=== PATIENT | female | born 1965 | race Caucasian/White ===

== ENCOUNTER 2018-11-12 01:06 | Emergency (ER) | payer OTHER, MEDICAID, SELFPAY ==
--- NOTE | 2018-11-12 01:07 | DI.RAD.S_ITS ---
PROCEDURE: XR CHEST 1V INDICATIONS: chest pain right side TECHNIQUE: One view of the chest was acquired. COMPARISON: None. FINDINGS: Surgical changes and devices: None. Lungs and pleura: Lungs are clear. No pleural effusions or pneumothorax. Mediastinum: Mediastinal contours appear normal. Heart size is normal. Bones and chest wall: No suspicious bony lesions. Overlying soft tissues appear unremarkable. IMPRESSION: Normal for age, source of current chest symptoms is not seen. Dictated by: Krzysztof Fong M.D. on 11/12/2018 at 8:23 Approved by: Krzysztof Fong M.D. on 11/12/2018 at 8:23
--- NOTE | 2018-11-12 01:07 | DI.US.S_ITS ---
PROCEDURE: US ABDOMEN COMPLETE INDICATIONS: RIGHT UPPER QUADRANT PAIN TECHNIQUE: Real-time scanning was performed of the abdominal and retroperitoneal organs, with image documentation. COMPARISON: None. FINDINGS: Liver: Liver is normal in size and homogeneous in echotexture. Gallbladder: Gallbladder is sonographically normal. No gallstones. No gallbladder wall thickening. No pericholecystic fluid. No sonographic Arreaga sign. Biliary ducts: Intrahepatic bile ducts are non-dilated. Extrahepatic bile duct caliber measures 7.0 mm. Normal is 6-7 mm or less in diameter, or 10 mm or less post-cholecystectomy. Pancreas: Visualized portions of the pancreas are sonographically normal. Spleen: Spleen is normal in size and homogeneous in echotexture. Kidneys: Kidneys are normal in size and echotexture. Right kidney measures 11.0 cm long; left kidney measures 10.7 cm long. No hydronephrosis or nephrolithiasis. No solid masses. Aorta: Visualized aorta is normal in caliber at less than 3 cm. Iliacs: Obscured by bowel gas and cannot be evaluated. IVC: Intrahepatic inferior vena cava is patent. Miscellaneous: No free abdominal fluid. IMPRESSION: Normal abdominal sonogram with no sonographic evidence of cholecystitis. Dictated by: Rachael Mueller MD, PhD on 11/12/2018 at 9:01 Approved by: Rachael Mueller MD, PhD on 11/12/2018 at 9:02
[2018-11-12 01:10] VITALS: BP 156/96; PULSE 95; RESP 18; TEMP 36.6; O2SAT 97
[2018-11-12] MEDS: KETOROLAC 60 MG/2 ML VIAL 30 MG IM (01:14)
[2018-11-12 01:31] LABS: Add Manual Diff / Slide Review NO; Basophils Absolute Auto 100 /uL (0-100); Basophils Percent Auto 1.1 % (0-2); Eosinophils Absolute Auto 300 /uL (0-450); Eosinophils Percent Auto 4.4 % (2-4); Hematocrit 38.5 % (36-46); Lymphocytes Absolute Auto 3100 /uL (1100-4500); Lymphocytes Percent Auto 52.7 % (25-40); Mean Corpuscular HGB Conc 33.8 % (30-36); Mean Corpuscular Hemoglobin 29.4 PG (26-34); Mean Corpuscular Volume 86.9 fL (80-100); Monocytes Absolute Auto 500 /uL (0-900); Monocytes Percent Auto 8.3 % (3-14); Neutrophils Absolute Auto 2000 /uL (1500-7000); Neutrophils Percent Auto 33.5 % (50-75); Platelet Count 198 X10^3/uL (150-400); Red Blood Cell Count 4.44 X10^6/uL (4.0-5.2)
[2018-11-12 01:41] LABS: Alanine Aminotransferase 47 IU/L (9-52); Albumin 4.2 g/dL (3.5-5.0); Albumin Globulin Ratio 1.4 (1.0-2.8); Alkaline Phosphatase 131 U/L (38-126); Aspartate Aminotransferase 39 IU/L (14-36); BUN Creatinine Ratio 36.7 (6-22); Bilirubin Total 0.3 mg/dL (0.2-1.3); Blood Urea Nitrogen 22 mg/dL (7-17); Calcium 9.4 mg/dL (8.4-10.2); Carbon Dioxide 28 mmol/L (22-32); Chloride 102 mmol/L (98-107); Creatine Kinase 101 U/L (30-135); Estimated Glomerular Filt Rate > 60.0 mL/min (>60); Globulin 3.1 g/dL (1.7-4.1); Glucose 108 mg/dL (70-100); HEMOLYSIS < 15 (0-50); Lipase 70 U/L (23-300); Potassium 4.1 mmol/L (3.4-5.1); Sodium 137 mmol/L (137-145); Total Protein 7.3 g/dL (6.3-8.2)
[2018-11-12 01:52] LABS: Troponin I < 0.012 ng/mL (0.01-0.034)
[2018-11-12 01:56] LABS: CKMB % Relative Index 2.8 % (1.5-5.0); Creatine Kinase MB 2.83 ng/mL (<2.37)
[2018-11-12 02:00] VITALS: BP 153/88; PULSE 88; RESP 18; O2SAT 98
--- NOTE | 2018-11-12 02:07 | ED_ITS ---
HPI - Chest Pain General Chief Complaint: Chest Pain Stated Complaint: Chest Pain Time Seen by Provider: 11/12/18 01:07 Source: patient and police Mode of arrival: ambulatory Limitations: no limitations History of Present Illness HPI narrative: The patient is a 53-year-old female who is brought in by police for right-sided chest pain. She says over last 3 days she has had some pain but nothing like this. She does have anxiety but she says this feels different. She has no shortness of breath with exertion is no nausea vomiting or palpitations. She has not had any fever or chills. Not exacerbated by food. She is brought in for medical clearance. Crying and upset. The patient admits that she smoked heroin earlier today. She does not inject or use IV drugs. She also smokes marijuana. MD complaint: chest pain Duration: constant Pain location: right chest Severity: moderate Relieving factors: nothing Exacerbating factors: nothing Related Data Allergies Allergy/AdvReac Type Severity Reaction Status Date / Time acetaminophen [From VICODIN] Allergy Mild itchy Unverified 11/11/17 12:53 hydrocodone [From VICODIN] Allergy Mild itchy Unverified 11/11/17 12:53 Review of Systems Review of Systems ROS Unobtainable: All systems reviewed & are unremarkable except as noted in HPI and below Constitutional Denies chills, Denies fever(s), Denies lethargy and Denies weakness Eyes Denies change in vision, Denies eye discharge, Denies irritation and Denies loss of vision Cardiovascular Reports as per HPI, Reports chest pain, Denies dyspnea and Denies dyspnea on exertion Respiratory Denies cough, Denies dyspnea, Denies dyspnea on exertion and Denies wheezing Gastrointestinal Gastrointestinal: Reports abdominal pain (ruq), Denies nausea and Denies vomiting Musculoskeletal Denies back pain, Denies muscle weakness, Denies numbness and Denies tingling Integumentary/Breasts Denies pruritus, Denies erythema, Denies rash and Denies wounds Neurologic Denies loss of vision, Denies numbness, Denies tingling and Denies weakness Allergic/Immunologic Denies wheezing [facility] Medical History Anxiety (Acute) Bipolar 1 disorder (Acute) Surgical History Status post bunionectomy Social History Smoking Status: Current every day smoker Social History (Updated 11/12/18 @ 02:18 by Natalie Whitney DO) Smoking Status: Current every day smoker substance use type: marijuana and heroin Exam Initial Vital Signs Initial Vital Signs: Vital Signs Temperature 97.9 F 11/12/18 01:10 Pulse Rate 95 H 11/12/18 01:10 Respiratory Rate 18 11/12/18 01:10 Blood Pressure 156/96 H 11/12/18 01:10 Pulse Oximetry 97 11/12/18 01:10 GENERAL: Crying tearful and in no acute distress. HEENT: Head atraumatic,EOMI, pupils reactive, face symmetric, neck is supple no meningeal signs CARDIOVASCULAR: Regular rate and rhythm without murmurs, rubs or gallops. RESPIRATORY: Breath sounds equal bilaterally, no wheezes rales or rhonchi. ABDOMEN: Soft, mild epigastric pain right upper quadrant pain positive Arreaga's sign no lower abdominal pain NEUROLOGICAL: Alert and oriented x4.Normal gait and speech. Cranial nerves II through XII grossly intact. SKIN: Warm, dry, no laceration, no petechiae, no rashes or lesions. Scores HEART Score Heart Score history: Slightly Suspicious Heart Score EKG: Normal Heart Score Age: 45-64 years old Heart Score risk factors: No known risk factors Heart Score troponin: < or = to normal limit Heart Score Total: 1 Course Orders Ordered: ED Orders 11/12/18 01:07 US abdomen complete Stat XR chest 1V Stat EKG-12 Lead Stat 11/12/18 01:16 Complete Blood Count AUTO DIFF Stat Comprehensive Metabolic Panel Stat Lipase Stat Troponin & CK Cardiac Panel Stat Discontinued Medications Ketorolac Tromethamine (Toradol) 30 mg IM NOW ONE Stop: 11/12/18 01:08 Last Admin: 11/12/18 01:14 Dose: 30 mg Vital Signs - 8 hr 11/12/18 01:10 11/12/18 02:00 Temperature 97.9 F Pulse Rate 95 H 88 Respiratory Rate 18 18 Blood Pressure 156/96 H Blood Pressure [Right Arm] 153/88 H Pulse Oximetry 97 98 MDM - Chest Pain Lab Data Attestation: I reviewed the patient's lab results. Result diagrams: 11/12/18 01:16 11/12/18 01:16 Lab Results 11/12/18 11/12/18 Range/Units 01:16 01:16 WBC 6.0 (4.5-11.0) X10^3/uL RBC 4.44 (4.0-5.2) X10^6/uL Hgb 13.0 (12.0-16.0) g/dL Hct 38.5 (36-46) % MCV 86.9 (80-100) fL MCH 29.4 (26-34) PG MCHC 33.8 (30-36) % RDW 14.0 (11.6-14.8) % Plt Count 198 (150-400) X10^3/uL Neut % (Auto) 33.5 L (50-75) % Lymph % (Auto) 52.7 H (25-40) % Aiken % (Auto) 8.3 (3-14) % Eos % (Auto) 4.4 H (2-4) % Baso % (Auto) 1.1 (0-2) % Neut # (Auto) 2000 (9097-5027) /uL Lymph # (Auto) 3100 (2675-6912) /uL Aiken # (Auto) 500 (0-900) /uL Eos # (Auto) 300 (0-450) /uL Baso # (Auto) 100 (0-100) /uL Sodium 137 (137-145) mmol/L Potassium 4.1 (3.4-5.1) mmol/L Chloride 102 (98-107) mmol/L Carbon Dioxide 28 (22-32) mmol/L BUN 22 H (7-17) mg/dL Creatinine 0.60 (0.52-1.04) mg/dL Estimated GFR > 60.0 (>60) mL/min BUN/Creatinine Ratio 36.7 H (6-22) Glucose 108 H (70-100) mg/dL Calcium 9.4 (8.4-10.2) mg/dL Total Bilirubin 0.3 (0.2-1.3) mg/dL AST 39 H (14-36) IU/L ALT 47 (9-52) IU/L Alkaline Phosphatase 131 H (38-126) U/L Total Creatine Kinase 101 (30-135) U/L CK-MB (CK-2) 2.83 H (<2.37) ng/mL CK-MB (CK-2) Rel Index 2.8 (1.5-5.0) % Troponin I < 0.012 (0.01-0.034) ng/mL Total Protein 7.3 (6.3-8.2) g/dL Albumin 4.2 (3.5-5.0) g/dL Globulin 3.1 (1.7-4.1) g/dL Albumin/Globulin Ratio 1.4 (1.0-2.8) Lipase 70 (23-300) U/L Imaging Data Chest x-ray: Attestation: I personally reviewed and interpreted this imaging study as follows: My impression: No acute cardiopulmonary process US - abdomen: Radiologist's impression: Night shifts report: Negative abdominal ultrasound ECG Data Attestation: I personally reviewed and interpreted this ECG as follows: Prior ECG tracings: not available for review Interpretation: Normal sinus rhythm rate [address] changes no T-wave inversions no priors to compare IL interval 153 QRS 97 QTC 395 MDM Narrative Medical decision making narrative: Patient overall has come down and feeling better after Toradol shot. She really is tender in her right upper cot quadrant and not necessarily her chest. Cardiac enzymes are negative however physical exam suggest gallbladder or biliary colic. No leukocytosis fever or elevated bilirubin or LFTs. At this time no indication for any emergent cholecystectomy however I did discuss with patient that she needs further workup of her gallbladder. Discharge Plan Departure Patient Disposition: Released, Other Clinical Impression: Atypical chest pain, Biliary colic Discharge Date/Time: 11/12/18 02:30 Interventions: ED Discharge Assessment Last Done: 11/12/18 02:34 Instructions: DI for Atypical Chest Pain, DI for General Gallbladder Conditions Activity Restrictions/Additional Instructions: MEDICALLY CLEARED FOR LONG-TERM *You have been diagnosed with atypical chest pain, biliary colic (gallbladder pain) *What to do: At this time her signs and symptoms are more consistent with gallbladder problems. You may eventually need her gallbladder taken out however it is not emergent at this time. Please talk with your PCP about further testing. *Continue to take medications as directed Motrin 800 mg every 8 hours if needed for pain *Follow up with your primary care provider in 2-3 days *Return to ER if you should have a fever, increasing abdominal pain, inability to tolerate fluids or worsening or changing chest or any new, worsening or concerning symptoms
== END 2018-11-12 02:30 | disposition home or self-care (01) ==
PROVIDERS: Emergency Provider Emergency Medicine
DX: R07.89 Other chest pain (principal); R10.11 Right upper quadrant pain
CPT/HCPCS: 36415; 71045; 76700; 80053; 82550; 82553; 83690; 84484; 85025; 93005; 93010; 96372; 99283; 99285; J1885

== ENCOUNTER 2019-07-14 14:09 | Emergency (ER) | payer OTHER, MEDICAID, SELFPAY ==
[2019-07-14 14:18] VITALS: BP 141/98; PULSE 117; RESP 20; TEMP 36.1; O2SAT 96; BMI 22.8
--- NOTE | 2019-07-14 14:52 | ED.ANXIETY ---
HPI - Anxiety <Indigo Hu PA-C - Last Filed: 07/14/19 21:09> General Chief Complaint: Anxiety Stated Complaint: Anxiety attack Time Seen by Provider: 07/14/19 14:46 Source: patient, EMS and police Mode of arrival: Ambulatory Limitations: no limitations History of Present Illness HPI narrative: This 54-year-old female presents for fit for chcf exam/panic attack, brought in by [employer]. She states that she has a long history of panic attacks and the symptoms feel quite typical for her. Usually she can calm herself down but occasionally she can't and usually keeps a couple of Ativan on hand for those situations. She does not have a PCP currently and does not have any medication. She states she does have a history of bipolar disorder with some anxiety but usually not problematic if she gets sleep. She states that she has not had anything to eat today, had a significant amount of caffeine, got into an argument also was arrested for trespassing, so has a significant amount of stress. She is also worried about her sister who is ill and home she helps care for. She states symptoms are as usual for her when she feels like the world is closing in, chest feels tight and it is hard to breathe. She feels very stiff dressed and panicky. She denies any new symptoms with this such as abdominal pain, extremity pain, nausea or vomiting. She states that she was addicted to prescription opioids previously, started using again when she began to have worse back pain last year, now back on Suboxone for several months and denies any drug use Related Data Previous Rx's Medication Instructions Recorded mupirocin 2 % topical ointment 1 applic TOP TID #30 gram 05/05/19 Allergies Allergy/AdvReac Type Severity Reaction Status Date / Time acetaminophen [From VICODIN] Allergy Mild itchy Verified 07/14/19 14:18 hydrocodone [From VICODIN] Allergy Mild itchy Verified 07/14/19 14:18 Review of Systems <Indigo Hu PA-C - Last Filed: 07/14/19 21:09> Review of Systems ROS Unobtainable: All systems reviewed & are unremarkable except as noted in HPI and below Patient History <ASHISH Little Last Filed: 07/14/19 21:09> Surgical History Status post bunionectomy Social History Smoking Status: Current every day smoker substance use type: marijuana and heroin Smoking Status: Current every day smoker Substance Use Type: former substance user and heroin Exam <Indigo Hu PA-C - Last Filed: 07/14/19 21:09> Narrative Exam Narrative: GENERAL APPEARANCE: Patient breathing quickly, pacing, appears anxious but in NAD NECK/THYROID: Neck supple LUNGS: Clear to auscultation bilaterally. HEART: Regular rate and rhythm without murmur, normal S1, S2, no S3 or S4. EXTREMITIES: No edema. No calf tenderness NEUROLOGIC: Alert and oriented, normal speech, gait and coordination. Initial Vital Signs Initial Vital Signs: Vital Signs Temperature 97.0 F L 07/14/19 14:18 Pulse Rate 117 H 07/14/19 14:18 Respiratory Rate 20 07/14/19 14:18 Blood Pressure 141/98 H 07/14/19 14:18 Pulse Oximetry 96 07/14/19 14:18 <Desiree Lares DO - Last Filed: 07/17/19 06:02> Initial Vital Signs Initial Vital Signs: Vital Signs Temperature 97.0 F L 07/14/19 14:18 Pulse Rate 117 H 07/14/19 14:18 Respiratory Rate 20 07/14/19 14:18 Blood Pressure 141/98 H 07/14/19 14:18 Pulse Oximetry 96 07/14/19 14:18 Course <Indigo Hu PA-C - Last Filed: 07/14/19 21:09> Course Additional Information: Patient was given a dose of Ativan, which is what she typically takes for more severe panic attack symptoms. Fit for chcf release given as she does not have any new or atypical symptoms Orders Ordered: Discontinued Medications Lorazepam (Ativan) 1 mg PO NOW ONE Stop: 07/14/19 15:06 Last Admin: 07/14/19 15:10 Dose: 1 mg Documented by: TONO Vital Signs Vital signs: Vital Signs - 8 hr 07/14/19 14:18 07/14/19 15:36 Temperature 97.0 F L Pulse Rate 117 H 98 H Respiratory Rate 20 20 Blood Pressure 141/98 H 138/95 H Pulse Oximetry 96 <Desiree Lares, DO - Last Filed: 07/17/19 06:02> Orders Ordered: Discontinued Medications Lorazepam (Ativan) 1 mg PO NOW ONE Stop: 07/14/19 15:06 Last Admin: 07/14/19 15:10 Dose: 1 mg Documented by: TONO Vital Signs Vital signs: Vital Signs - 8 hr 07/14/19 14:18 07/14/19 15:36 Temperature 97.0 F L Pulse Rate 117 H 98 H Respiratory Rate 20 20 Blood Pressure 141/98 H 138/95 H Pulse Oximetry 96 Discharge Plan Departure Patient Disposition: Released, Other Clinical Impression: Panic attack as reaction to stress Discharge Date/Time: 07/14/19 15:36 Instructions: Anxiety and Panic Attacks (Alternative Therapy), DI for Panic Disorder Activity Restrictions/Additional Instructions: We have given you lorazepam (the medication that usually helps you) for your panic attack. I agree with you that this is most likely the source of your symptoms today, and probably exacerbated by having caffeine and nothing in your stomach along with all of the stress. As soon as you are able, please establish with a local primary care provider to help with the anxiety symptoms and so you can discuss having some medication on hand for this as you usually do. You can call the hospital Resource Center at [phone] to help get set up with someone new. You should always return to the hospital if you cannot control your symptoms or have new chest pain, breathing difficulties, etc.. Prescriptions: No Action mupirocin 2 % ointment 1 applic TOP TID Qty: 30 RF: 0 Stand Alone Forms: Work Release Note
[2019-07-14] MEDS: LORazepam 0.5 MG TABLET 1 MG PO (15:10)
[2019-07-14 15:36] VITALS: BP 138/95; PULSE 98; RESP 20
== END 2019-07-14 15:36 | disposition home or self-care (01) ==
PROVIDERS: Emergency Provider Internal Medicine
DX: F43.0 Acute stress reaction (principal)
CPT/HCPCS: 99283